=== PATIENT | male | born 1975 | race African-American/Black ===

== ENCOUNTER → 2018-12-09 | Outpatient (CLI) | payer OTHER ==
--- NOTE | 2018-12-09 09:17 | PCVCIMAG ---
APPROVED REPORT Study performed: 12/09/2018 07:31:20 EXAM: Comprehensive 2D, Doppler, and color-flow Echocardiogram Patient Location: Echo lab Status: routine BSA: 2.07 HR: 62 bpmBP: 134/82 mmHg Rhythm: NSR Other Information Study Quality: Adequate Risk Factors: Cardiac Risk Factors: Hyperlipidemia Indications Palpitations 2D Dimensions IVSd: 12.92 (7-11mm) LVDd: 40.21 mm PWd: 11.97 (7-11mm) LVDs: 26.87 (25-40mm) Left Atrium: 36.77 (27-40mm) Aortic Root: 29.85 mm LV Single Plane 4CH: 68.09 % LV Single Plane 2CH: 56.79 % Biplane EF: 63.1 % Volumes Left Atrial Volume (Systole) Single Plane 4CH: 48.23 mLSingle Plane 2CH: 53.08 mL LA ESV Index: 26.00 mL/m2 Aortic Valve AoV Peak Jd.: 1.53 m/s AO Peak Gr.: 9.30 mmHgLVOT Max P.38 mmHg LVOT Max V: 1.16 m/s Mitral Valve E/A Ratio: 1.3 MV Decel. Time: 226.47 ms MV E Max Jd.: 0.77 m/s MV A Jd.: 0.58 m/s IVRT: 100.35 ms Pulmonary Valve PV Peak Jd.: 1.18 m/sPV Peak Gr.: 5.52 mmHg Pulmonary Vein P Vein S: 0.38 m/sP Vein A: 0.28 m/s P Vein D: 0.47 m/sP Vein A Dur.: 128.0 msec P Vein S/D Ratio: 0.81 Tricuspid Valve TR Peak Jd.: 2.23 m/s TR Peak Gr.: 19.92 mmHg TV Vmax: 0.67 m/s Left Ventricle The left ventricle is normal size. There is normal LV segmental wall motion. Mild concentric left ventricular hypertrophy. Left ventricular systolic function is normal. The left ventricular ejection fraction is within the normal range. LVEF is 60-65%. The left ventricular diastolic function is normal. Right Ventricle The right ventricle is normal size. The right ventricular systolic function is normal. Atria The left atrium size is normal. The right atrium size is normal. Aortic Valve The aortic valve is normal in structure. No aortic regurgitation is present. There is no aortic valvular stenosis. Mitral Valve The mitral valve is normal in structure. Mild mitral regurgitation. No evidence of mitral valve stenosis. Tricuspid Valve The tricuspid valve is normal in structure. Mild tricuspid regurgitation with PAP of 27 mmHg. Pulmonic Valve The pulmonary valve is normal in structure. There is no pulmonic valvular regurgitation. Great Vessels The aortic root is normal in size. IVC is normal in size and collapses >50% with inspiration. Pericardium There is no pericardial effusion. There is no pleural effusion. <Conclusion> Left ventricular systolic function is normal. There is normal LV segmental wall motion. LVEF is 60-65%. The left ventricular diastolic function is normal. The aortic valve is normal in structure. No aortic regurgitation or stenosis The mitral valve is normal in structure. Mild mitral regurgitation. Mild tricuspid regurgitation with pulmonary artery pressure of 27 mmHg. There is no pericardial effusion.
== END | disposition home or self-care (01) ==
LOC: PCVCIMAG 07:44
PROVIDERS: ATTEND Internal Medicine
DX: I08.1 Rheumatic disorders of both mitral and tricuspid valves (principal); R00.2 Palpitations; E78.2 Mixed hyperlipidemia
CPT/HCPCS: 93306